=== PATIENT | female | born 1995 | race Caucasian/White ===

== ENCOUNTER 2021-01-16 15:33 | Emergency (ER) | payer SELFPAY ==
[~2021-01-16] VITALS: Ht 167.6 cm; Wt 68.0 kg
--- NOTE | 2021-01-16 15:58 | NUR ---
PATIENT UNABLE TO PROVIDE IDENTIFICATION FORM.
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
--- NOTE | 2021-01-16 16:05 | NUR ---
PATIENT STATES SHE CANNOT TAKE MORPHINE AND TORADOL DUE TO RASHES, SHE CAN ONLY TAKE DILAUDID AND FENTANYL FOR PAIN.
--- NOTE | 2021-01-16 16:15 | NUR ---
ELEZAAR INFORMED PATIENT THAT SHE CANNOT HAVE IV OPIOIDS AT THIS TIME. PATIENT DECIDED SHE'LL JUST GO TO ANOTHER HOSPITAL. Patient does not wish to proceed with medical care recommended by Dr. Brandon. Patient given information related to possible complications, up to and including , which could occur as a result of leaving the hospital at this time. Patient verbalizes understanding of risks involved due to leaving against medical advice. Patient has signed AMA form.
[2021-01-16 16:23] VITALS: BP 138/74
== END 2021-01-16 16:23 | disposition left against medical advice (07) ==
LOC: ER 15:40
DX: R10.31 Right lower quadrant pain (principal); F91.9 Conduct disorder, unspecified; Z76.5 Malingerer [conscious simulation]; Z88.6 Allergy status to analgesic agent; Z60.2 Problems related to living alone; Z85.41 Personal history of malignant neoplasm of cervix uteri